=== PATIENT | male | born 1945 | race Caucasian/White ===

== ENCOUNTER 2016-11-06 11:58 | Inpatient (IN) | payer MEDICARE, SELFPAY ==
--- NOTE | ~2016-11-06 | PRECARD ---
H&P [facility] [address] [place] [address]. [address] NAME: TAMMY MARTINEZ JR : 41 STATUS : ADM IN [facility]#: [id number] AGE: 71 ADM/REG DATE : 11/06/16 MR#: [id number] REPORT SERV DATE: 11/06/16 DICTATED BY: NAHUM RODNEY DATE: 11/06/16 REPORT STATUS : Draft TRANSCRIBED BY: KRYS DATE: 11/06/16 DATE OF ADMISSION: 11/06/2016 HISTORY OF PRESENT ILLNESS: The patient is a 71-year-old white male who has been having syncopal and near-syncopal episodes over the past three months. He came to the emergency room today after passing out while sitting on the couch. He has been found to have several episodes of asystole on the monitor in the ER. He is on no beta-blockers, calcium channel blockers, or other medications that would cause bradycardia or AV block. He denies chest pain. PAST MEDICAL HISTORY: Remarkable for hyperlipidemia. SOCIAL HISTORY: The patient quit smoking 30 years ago. FAMILY HISTORY: Negative for coronary artery disease. REVIEW OF SYSTEMS: The patient denies cough, wheeze, sputum production, vomiting, diarrhea, or dysuria. PHYSICAL EXAMINATION: VITAL SIGNS: Blood pressure is 153/84, heart rate is 60 and regular, respirations are 16 and unlabored. GENERAL: The patient is in no acute distress. ENT: Unremarkable. NECK: Shows no jugular venous distention with good carotid upstroke. CHEST: Clear. CARDIOVASCULAR: PMI is not displaced. S1 is normal. S2 is narrowly split. No gallop is present. ABDOMEN: Soft, nontender, with normal bowel sounds. EXTREMITIES: Show no cyanosis, clubbing, or edema. SKIN: Warm and dry with no pallor or icterus. NEUROPSYCHIATRIC: The patient is oriented x3 with appropriate affect. DIAGNOSTIC DATA: EKG shows sinus rhythm at [address]-T changes. IMPRESSION: Sick sinus syndrome associated with syncope. PLAN: 1. Admit to monitored bed. 2. Echocardiogram. 3. EP consultation. BARBRA/KRYS H&P PRE CARD [address] [address] NAME: TAMMY MARTINEZ JR : 41 STATUS : ADM IN PAT#: [id number] AGE: 71 ADM/REG DATE : 11/06/16 MR#: [id number] REPORT SERV DATE: 11/06/16 DICTATED BY: NAHUM RODNEY DATE: 11/06/16 REPORT STATUS : Draft TRANSCRIBED BY: MODL DATE: 11/06/16 Nahum Rodney M.D., Ama / [id number] CC: Nahum Rodney M.D., Ama UNKNOWN
--- NOTE | ~2016-11-06 | CN ---
Consultation Report [address] [place]. [address] NAME: DEION MARTINEZ JR : 41 STATUS : ADM IN [facility]#: [id number] AGE: 71 ADM/REG DATE : 11/06/16 MR#: [id number] REPORT SERV DATE: 11/07/16 DICTATED BY: DEION CLAYTON DATE: 11/07/16 REPORT STATUS : Draft TRANSCRIBED BY: MODL DATE: 11/07/16 CONSULTATION DATE OF CONSULTATION: 11/07/2016 REASON FOR THE VISIT: Heart block. HISTORY OF PRESENT ILLNESS: Mr. Martinez is a 71-year-old man who is otherwise pretty healthy, who has presented with syncope. He had been having some presyncopal and short syncopal events over the last several weeks. He had a prolonged episode yesterday. The ambulance was called, he had another episode in the ambulance, and was found to have heart block, that occurred again with heart block in the emergency room. Last night while he was admitted, he had yet another episode. He was taken urgently to the cardiac catheterization laboratory by Dr. Washington. His coronary arteries did not show any significant epicardial coronary disease. The ejection fraction is 60%. A temporary pacemaker was placed and the patient is now stable. PAST MEDICAL HISTORY: Hyperlipidemia. SOCIAL HISTORY: Nonsmoker. He is . He is a . FAMILY HISTORY: There is no significant cardiac disease in his family. HOME MEDICATIONS: 1. Tylenol as directed. 2. Atorvastatin 20 mg every night at bedtime. 3. Flomax 0.4 mg every night at bedtime. ALLERGIES: NO KNOWN DRUG ALLERGIES. REVIEW OF SYSTEMS: A 10 system review is asked and is negative except for noted above in history of present illness. Other than the recent presyncopal and syncopal events, the patient is active and healthy. No recent cold or flu symptoms. No new medications. PHYSICAL EXAMINATION: VITAL SIGNS: Temperature 98.5, heart rate 70, blood pressure 117/71. GENERAL: Mr. Martinez is a well-developed man in no acute distress. He is alert and oriented to person and place. HEENT: Negative. NECK: There is no JVD in his neck. LUNGS: Clear. HEART: Tones are regular. No murmur. ABDOMEN: Negative. He has good bowel sounds. Consultation Report [address] [place]. [address] NAME: DEION MARTINEZ JR : 41 STATUS : ADM IN PAT#: [id number] AGE: 71 ADM/REG DATE : 11/06/16 MR#: [id number] REPORT SERV DATE: 11/07/16 DICTATED BY: DEION CLAYTON DATE: 11/07/16 REPORT STATUS : Draft TRANSCRIBED BY: MODL DATE: 11/07/16 EXTREMITIES: Does not show edema. NEUROLOGIC: He is intact with normal speech and normal strength in all four extremities. SKIN: Shows no significant bruising. No rash. LABORATORY DATA: White blood cell count is 12, hematocrit 45, platelet count 144. INR 1.1. Sodium 143, potassium 3.6, BUN 15, creatinine 0.9. Cardiac enzymes are negative. Electrocardiogram, this is from yesterday at about noon, it shows sinus rhythm in the 60s, normal axis, good R-wave progression, some flattened T-waves. Telemetry, multiple telemetry strips were reviewed, multiple episodes of third-degree heart block are noted, prolonged pauses are noted with this. IMPRESSION: 1. Intermittent third-degree heart block with syncope. 2. No obvious reversible cause for the above. PLAN: Mr. Martinez will certainly require a dual chamber pacemaker. Today, we have discussed the indications, procedural details, alternatives, and benefits. We also discussed the long list of potential risks, which are clearly outweighed by the benefit of this device. We will put this in later today and have him out of the hospital probably by tomorrow. JULIÁN/KRYS Deion Clayton M.D. / [id number] CC: Nahum Washington M.D., F.A.CCelenaCCelena
--- NOTE | ~2016-11-06 | OP ---
Record Of Operation [facility] [address] [place]. [address] NAME: TAMMY MARTINEZ JR : 41 STATUS : ADM IN PAT#: [id number] AGE: 71 ADM/REG DATE : 11/06/16 MR#: [id number] REPORT SERV DATE: 11/07/16 DICTATED BY: NAHUM WASHINGTON DATE: 11/06/16 REPORT STATUS : Draft TRANSCRIBED BY: MODL DATE: 11/06/16 DATE OF PROCEDURE: 11/06/2016 Cardiac Catheterization And Temporary Pacemaker Report INDICATION FOR THIS PROCEDURE: Syncope and high-grade AV block. PROCEDURE IN DETAIL: The patient was prepped and draped in the usual sterile fashion. Moderate IV sedation was administered. Adequate anesthesia was obtained over the right femoral vessels using lidocaine infiltration. Using the Seldinger technique, a 6-[place]ank[place] sheath was placed in the right femoral artery. A transvenous pacing catheter was advanced under fluoroscopic guidance to the right ventricular apex where pacing was confirmed. A 6 FL4 coronary catheter was advanced to the left coronary ostium and left coronary artery injections were performed in multiple views. The left coronary catheter was exchanged for 6 FR4 coronary catheter, which was advanced to the right coronary ostium. Right coronary artery injections were then performed in the NICARAGUAN and LOPEZ views. The right coronary catheter was exchanged for 6-[place]ankan pigtail catheter, which was advanced in the left ventricular cavity. Pressures were measured across the aortic valve and left ventricular angiogram was obtained in the LOPEZ projection. The pigtail catheter was removed over a guidewire and sheath left in place. There were no apparent complications. TOTAL CONTRAST USED: 75 mL. TOTAL RADIATION EXPOSURE: 267 mGy. ESTIMATED BLOOD LOSS: No significant blood loss occurred. RESULTS: 1. Pressures: The left ventricular end-diastolic pressure was 12 mmHg. No gradient was present across the aortic valve. 2. Left ventricular angiogram: The left ventricle contracted normally with an estimated ejection fraction of 65%. 3. Coronary arteriograms. The left anterior descending coronary artery and the left circumflex coronary artery arose from separate ostia with TIA in the left coronary cusp. The left anterior descending coronary artery had a 20% to 30% lesion in its midportion, but no obstructive disease. Left circumflex coronary artery was normal. The right coronary artery was dominant vessel with luminal irregularities, but no obstructive disease. IMPRESSION: 1. No significant coronary artery disease. 2. Normal left ventricular contractility. 3. Successful placement of transvenous pacing catheter. Record Of Operation [facility] [address] [place]. [address] NAME: TAMMY MARTINEZ JR : 41 STATUS : ADM IN PAT#: [id number] AGE: 71 ADM/REG DATE : 11/06/16 MR#: [id number] REPORT SERV DATE: 11/07/16 DICTATED BY: NAHUM WASHINGTON DATE: 11/06/16 REPORT STATUS : Draft TRANSCRIBED BY: MODL DATE: 11/06/16 SS/KRYS Nahum Washington M.D., Ama / [id number] CC: Nahum Washington M.D., Ama
[2016-11-06 12:28] LABS: BASOPHILS 0 %; EOSINOPHILS 0 %; HEMATOCRIT 42.9 % (40.0-51.0); HEMOGLOBIN 15.3 g/dL (13.6-17.8); IMMATURE GRANULOCYTES 0.2 %; IMMATURE GRANULOCYTES ABSOLUTE 0.01 10/3/uL (0.0-0.11); LYMPHOCYTES 13.7 %; LYMPHOCYTES ABSOLUTE 0.86 10/3/uL (0.67-4.30); MEAN CORPUS HGB CONC 35.7 g/dL (32.0-36.0); MEAN CORPUSCULAR HEMOGLOB 32.1 pg (26.0-34.0); MEAN CORPUSCULAR VOLUME 90.1 fL (80-100); MEAN PLATELET VOLUME 9.4 fL (9.2-13.0); MONOCYTES 3.5 %; MONOCYTES ABSOLUTE 0.22 10/3/uL (0.21-1.20); NEUTROPHILS 82.6 %; NEUTROPHILS ABSOLUTE 5.17 10/3/uL (2.02-8.40); PLATELET COUNT 132 10/3/uL (150-400); RBC DISTRIBUTION WIDTH 12.9 % (12.0-16.0); RED CELL COUNT 4.76 10/6/uL (4.7-6.1); WHITE BLOOD CELLS 6.3 10/3/uL (4.5-10.5)
[2016-11-06 12:29] LABS: MANUAL DIFF NO %
[2016-11-06 12:33] LABS: INTERNATIONAL NORMAL RATI 1.1 UNITS (-); PARTIAL THROMBO TIME 25.9 SEC (22.5-37.2); PROTIME (NOT ORD) 13.8 SEC (12.0-14.5)
[2016-11-06 12:43] LABS: BUN (BLOOD UREA NITROGEN) 17 MG/DL (6-23); CALCIUM, SERUM 9.1 MG/DL (8.5-10.4); CHEST PAIN PROFILE TAT 0 Hrs 21 Mins; CHLORIDE, SERUM 107 MMOL/L (96-112); CO2 (CARBON DIOXIDE) 26 MMOL/L (24-34); CREATININE 1.07 MG/DL (0.70-1.30); GFR AFRICAN AMERICAN 79 ML/MIN (>=60); GFR NON AFRICAN AMERICAN 69 ML/MIN (>=60); GLUCOSE, SERUM 189 MG/DL (60-99); POTASSIUM, SERUM 3.7 MMOL/L (3.5-5.3); SODIUM, SERUM 141 MMOL/L (135-148); TROPONIN I <0.02 NG/ML (<0.05)
[2016-11-06] MEDS ORDERED: ACET500CAP PO (13:57)
[2016-11-06] MEDS ORDERED: FLOMAX4 PO (13:57)
[2016-11-06] MEDS ORDERED: LIPITOR20 PO (14:01)
[2016-11-07 05:15] LABS: BASOPHILS 0.1 %; BASOPHILS ABSOLUTE 0.01 10/3/uL (0.0-0.16); EOSINOPHILS 0.2 %; EOSINOPHILS ABSOLUTE 0.02 10/3/uL (0.0-0.53); HEMATOCRIT 44.8 % (40.0-51.0); HEMOGLOBIN 15.7 g/dL (13.6-17.8); IMMATURE GRANULOCYTES 0.3 %; IMMATURE GRANULOCYTES ABSOLUTE 0.04 10/3/uL (0.0-0.11); LYMPHOCYTES 12.4 %; LYMPHOCYTES ABSOLUTE 1.45 10/3/uL (0.67-4.30); MEAN CORPUSCULAR HEMOGLOB 31.9 pg (26.0-34.0); MEAN CORPUSCULAR VOLUME 91.1 fL (80-100); MEAN PLATELET VOLUME 9.8 fL (9.2-13.0); MONOCYTES 5.9 %; MONOCYTES ABSOLUTE 0.69 10/3/uL (0.21-1.20); NEUTROPHILS 81.1 %; NEUTROPHILS ABSOLUTE 9.52 10/3/uL (2.02-8.40); PLATELET COUNT 144 10/3/uL (150-400); RBC DISTRIBUTION WIDTH 12.8 % (12.0-16.0); RED CELL COUNT 4.92 10/6/uL (4.7-6.1)
[2016-11-07 05:16] LABS: MANUAL DIFF NO %; WHITE BLOOD CELLS 11.7 10/3/uL (4.5-10.5)
[2016-11-07 05:29] LABS: BUN (BLOOD UREA NITROGEN) 15 MG/DL (6-23); CALCIUM, SERUM 8.6 MG/DL (8.5-10.4); CHLORIDE, SERUM 110 MMOL/L (96-112); CHOL/HDL RATIO(NOT ORDER) 2.1 (0-5); CHOLESTEROL 121 MG/DL (< 200); CO2 (CARBON DIOXIDE) 25 MMOL/L (24-34); CREATININE 0.91 MG/DL (0.70-1.30); GFR AFRICAN AMERICAN 97 ML/MIN (>=60); GFR NON AFRICAN AMERICAN 83 ML/MIN (>=60); HDL CHOLESTEROL 57 MG/DL (> 39); LDL CHOLESTEROL 49 MG/DL (< 130); NON-HDL CHOLESTEROL 64 MG/DL (< 160); POTASSIUM, SERUM 3.6 MMOL/L (3.5-5.3); SODIUM, SERUM 143 MMOL/L (135-148); TRIGLYCERIDE 78 MG/DL (< 150)
[2016-11-07 05:30] LABS: GLUCOSE, SERUM 108 MG/DL (60-99)
[2016-11-07 09:32] LABS: FREE T4 1.19 NG/DL (0.76-1.46); ULTRASENSITIVE TSH 2.25 MCIU/ML (0.358-3.740)
== END 2016-11-08 09:52 | disposition home or self-care (01) | DRG 244 ==
LOC: ER 11:58 → 5NO 15:05 → CCU 19:49 → SSU1 11-07 16:45
PROVIDERS: Hospitalist; Internal Medicine Cardiovascular Disease; Internal Medicine Interventional Cardiology
PROC: B2151ZZ Fluoroscopy of Left Heart using Low Osmolar Contrast (ICD-10-PCS; principal; 2016-11-06)
PROC: B2111ZZ Fluoroscopy of Multiple Coronary Arteries using Low Osmolar Contrast (ICD-10-PCS; 2016-11-06)
PROC: 0JH606Z Insertion of Pacemaker, Dual Chamber into Chest Subcutaneous Tissue and Fascia, Open Approach (ICD-10-PCS; 2016-11-06)
PROC: 02H63JZ Insertion of Pacemaker Lead into Right Atrium, Percutaneous Approach (ICD-10-PCS; 2016-11-06)
PROC: 4A023N7 Measurement of Cardiac Sampling and Pressure, Left Heart, Percutaneous Approach (ICD-10-PCS; 2016-11-06)
PROC: 02HK3JZ Insertion of Pacemaker Lead into Right Ventricle, Percutaneous Approach (ICD-10-PCS; 2016-11-06)
PROC: 5A1223Z Performance of Cardiac Pacing, Continuous (ICD-10-PCS; 2016-11-06)
DX: I44.2 Atrioventricular block, complete (principal); E78.5 Hyperlipidemia, unspecified; I25.10 Atherosclerotic heart disease of native coronary artery without angina pectoris; I49.5 Sick sinus syndrome; Z87.891 Personal history of nicotine dependence; E78.00 Pure hypercholesterolemia, unspecified
CPT/HCPCS: 33208; 71010; 80048; 80061; 82962; 83735; 84439; 84443; 84484; 85025; 85610; 85730; 87641; 93005; 93458; 99152; 99285; A9270-GY; C1769; C1785; C1892; C1898; C8929; J0690; J2250; J2405; J3010; Q9957; Q9967